=== PATIENT | female | born 1935 | race Caucasian/White ===

== ENCOUNTER 2021-08-14 21:55 | Observation (INO) | payer OTHER, SELFPAY ==
--- NOTE | ~2021-08-14 | XR_ITS ---
EXAMINATION: XR chest 1V portable INDICATION: Weakness, COVID 19 positive TECHNIQUE: Portable AP chest at 2213 hours COMPARISON: None available FINDINGS: The lungs are free of acute opacities. There is no pleural effusion or pneumothorax. The ca rdiomediastinal silhouette is normal. There appears to be eventration of the left hemidiaphragm. IMPRESSION: 1. No acute cardiopulmonary abnormality. Reviewed, dictated and finalized at location F. ENTARY SCHOOL DIRECTOR
[2021-08-14 21:51] VITALS: BP 153/71; PULSE 84; RESP 20; TEMP 36.8; O2SAT 96
--- NOTE | 2021-08-14 21:59 | ECG_ITS ---
Measurements Intervals [place] Rate: 84 P: 91 NM: 173 QRS: 8 QRSD: 97 T: 53 QT: 400 QTc: 474 Interpretive Statements SINUS RHYTHM CONSIDER INFERIOR INFARCT, AGE INDETERMINATE BORDERLINE ST-T WAVE ABNORMALITY- ANTEROLAT/HIGH LAT LEADS BASELINE ARTIFACT- I, II, III, AVR, AVL, AVF ABNORMAL ECG Electronically Signed On 08-15-2021 6:04:02 CARDIOLOGY CLINICAL CONSULTANT by Gokul Saavedra D.O.
[2021-08-14 22:23] VITALS: PULSE 89
[2021-08-14 22:28] LABS: Basophils Percent Auto 0.5 % (0.2-1.2); Eosinophils Absolute Auto 0.1 K/mm3 (0-0.3); Eosinophils Percent Auto 0.6 % (0-4.4); Hemoglobin 13.1 g/dL (12.0-15.0); Immature Granulocyte Absolute 0.04 K/mm3 (0.00-0.031); Immature Granulocyte Percent A 0.5 % (0-0.5); Lymphocytes Absolute Auto 1.83 K/mm3 (0.9-3.2); Lymphocytes Percent Auto 22.8 % (18.3-44.2); Mean Corpuscular HGB Conc 34.5 g/dl (32-36); Mean Corpuscular Hemoglobin 32.8 pg (26-34); Mean Platelet Volume 10.3 fl (7.4-10.4); Monocytes Absolute Auto 0.7 K/mm3 (0.1-0.6); Monocytes Percent Auto 8.9 % (2.6-8.5); Neutrophils Absolute Auto 5.3 K/mm3 (1.3-6.7); Neutrophils Percent Auto 66.7 % (45.5-73.1); Platelet Count Result 245 k/mm3 (150-375); Red Cell Distribution Width 12.7 % (11.5-14.5)
[2021-08-14 22:30] VITALS: PULSE 79; RESP 19; O2SAT 99
--- NOTE | 2021-08-14 22:30 | PC.NURSE ---
Pt's daughter, Ree Gorman, contact number: [phone]
[2021-08-14 22:32] VITALS: BP 144/68; PULSE 78; RESP 18; O2SAT 100
[2021-08-14 22:45] VITALS: PULSE 80; RESP 21
[2021-08-14] MEDS: SODIUM CHLORIDE 0.9% IV 500 ML 999 ML IV CONT (22:51)
[2021-08-14] MEDS: ONDANSETRON INJ 4 MG/2 ML VIAL IV PUSH (22:52)
[2021-08-14 23:13] LABS: Alanine Aminotransferase 13 U/L (4-35); Albumin Level 3.4 g/dL (3.5-5.1); Alkaline Phosphatase 54 U/L (38-126); Anion Gap 8 mmol/L (8-16); Aspartate Amino Transferase 22 U/L (14-36); Bilirubin,Total 1.3 mg/dL (0.2-1.3); Blood Urea Nitrogen 28 mg/dL (7-17); Carbon Dioxide 29 mmol/L (22-30); Chloride 94 mmol/L (98-107); Estimated CRCL calculation 39 ml/min; Estimated Glomerular Filt Rate 59; Glucose 126 mg/dL (65-110); Potassium 2.7 mmol/L (3.4-5.0); Sodium 131 mmol/L (137-145)
--- NOTE | 2021-08-14 23:25 | PC.NURSE ---
Assumed care of pt at this time, report taken from
--- NOTE | 2021-08-14 23:34 | PC.NURSE ---
Spoke with pts Grandson and caregiver, Ezio ([phone]), and he stated that pt has had black stools for last couple of days along with GI upset when eating. EDP notified.
[2021-08-14 23:56] VITALS: BP 146/74; PULSE 83; RESP 16; O2SAT 100
[2021-08-14] MEDS: POTASSIUM CHLORIDE INJ 40 MEQ in SODIUM CHLORIDE 0.9% IV 500 ML 130 MEQ IVPB (23:56)
--- NOTE | 2021-08-14 23:58 | ED.SYNCOPE ---
HPI - Syncope General Chief Complaint: Syncope Stated Complaint: syncope Time Seen by Provider: 08/14/21 22:03 Source: patient and EMS Mode of arrival: EMS Limitations: no limitations History of Present Illness HPI narrative: 85-year-old brought in from home with complaints of syncopal episode. Patient is a poor historian most of the history was obtained from EMS and family. Patient was recently diagnosed with COVID about 5 days ago . Family reports that she has been feeling weak not eating drinking and having black-colored stool. Patient however denies any chest pain or shortness of breath or cough. She states she had diarrhea earlier. Patient states that she felt faint before going to bed. MD complaint: felt faint Onset (ago): hour(s) (1) Witnessed: Yes - by Other (By family) Injuries sustained associated with event: none Current symptoms: none Related Data Home Medications Medication Instructions Recorded Confirmed atorvastatin 40 mg PO HS 08/14/21 clopidogrel 75 mg PO DAILY 08/14/21 famotidine 20 mg PO DAILY 08/14/21 pantoprazole 40 mg PO QAM 08/14/21 Allergies Allergy/AdvReac Type Severity Reaction Status Date / Time codeine Allergy Unknown Verified 08/14/21 22:02 denosumab Allergy Itching Verified 08/14/21 22:02 hydrocodone Allergy Nausea and Verified 08/14/21 22:02 Vomiting piperacillin Allergy Nausea and Verified 08/14/21 22:02 Vomiting Sulfa (Sulfonamide Allergy Nausea and Verified 08/14/21 22:02 Antibiotics) Vomiting tazobactam [From Zosyn] Allergy Nausea and Verified 08/14/21 22:02 Vomiting alendronate sodium AdvReac Nausea and Verified 08/14/21 22:02 Vomiting Review of Systems Review of Systems: All systems reviewed & are unremarkable except as noted in HPI and below Constitutional: Constitutional: Reports no additional constitutional complaints Eyes: Eyes: Reports no additional eye complaints ENT: Reports system reviewed and no additional complaints, except as documented Cardiovascular: Cardiovascular: Reports no additional cardiovascular complaints Respiratory: Respiratory: Reports no additional respiratory complaints Gastrointestinal: Gastrointestinal: Reports as per HPI Musculoskeletal: Musculoskeletal: Reports no additional musculoskeletal complaints Integumentary/Breasts: Skin/Breast: Reports system reviewed and no additional complaints, except as docu Neurologic: Reports system reviewed and no additional complaints, except as documented Exam Narrative: GENERAL: Well-appearing, well-nourished, and in no acute distress. HEAD: Normocephalic, atraumatic. EYES: PERRLA and EOMI.. NECK: Supple. CHEST: Clear to auscultation. No respiratory distress. HEART: Regular rate and rhythm. No murmur heard. Normal peripheral pulses. ABDOMEN: Soft, nontender, nondistended, normal active bowel sounds. Rectal guaiac Positive stool EXTREMITIES: Normal range of motion. No edema. SKIN: Warm, dry, no rash. NEURO: No focal deficits. Alert and oriented x3. PSYCH: Normal mood and affect. Course Course Emergency Course: Patient comfortably lying on bed in no discomfort. Informed her about her lab work. Discussed with Dr. Hunter agreed with admission Vital Signs Vital signs: Vital Signs Temperature 36.8 C 08/14/21 21:51 Pulse Rate 84 08/14/21 21:51 Respiratory Rate 20 08/14/21 21:51 Blood Pressure 153/71 H 08/14/21 21:51 Pulse Oximetry 96 08/14/21 21:51 Temperature 36.8 C 08/14/21 21:51 Pulse Rate 83 08/14/21 23:56 Respiratory Rate 16 08/14/21 23:56 Blood Pressure 146/74 H 08/14/21 23:56 Pulse Oximetry 100 08/14/21 23:56 MDM - Syncope Lab Data Result diagrams: 08/14/21 22:23 08/14/21 22:23 Labs: Lab Results 08/14/21 08/14/21 Range/Units 22:23 22:23 WBC 8.0 (4.5-10.0) K/mm3 RBC 4.00 L (4.2-5.4) M/mm3 Hgb 13.1 (12.0-15.0) g/dL Hct 38.0 (37.0-47.0) % MCV 95.0 (80-100
[2021-08-15] VITALS (15 sets, daily range): BP systolic 82–167; BP diastolic 43–93; PULSE 80–116; RESP 14–25; TEMP 36.1–36.7; O2SAT 92–100; BMI 30.5
[2021-08-15] MEDS: SODIUM CHLORIDE 0.9% IV 1,000 ML 100 ML IV CONT ×2 (01:32→12:52)
[2021-08-15] MEDS: PANTOPRAZOLE SODIUM IV 40 MG VIAL IV PUSH ×3 (01:39→20:41)
--- NOTE | 2021-08-15 02:31 | PC.NURSE ---
Pts daughter, Ree, would like update when pt has a bed.
[2021-08-15 02:52] LABS: Magnesium 2.5 mg/dL (1.6-2.3)
--- NOTE | 2021-08-15 03:14 | PC.NURSE ---
Pt states liquid potassium burned her mouth and throat. Per Dr Crowley, give 40 meq PO potassium chloride tablets.
[2021-08-15] MEDS: POTASSIUM CHLORIDE 20 MEQ TABLET 40 MEQ PO (03:38)
[2021-08-15] MEDS: ONDANSETRON INJ 4 MG/2 ML VIAL IV PUSH ×3 (03:43→12:53)
--- NOTE | 2021-08-15 04:35 | PM.IMHP ---
H&P: HPI History of Present Illness Date/Time: 08/15/21 04:35 Chief Complaint: Passed out Narrative: 85-year-old female with a past medical history hyperlipidemia, hypertension, tachycardia and GERD who presented to the ER via EMS after having a syncopal episode. The patient reports that she was diagnosed with COVID on August 08. Since that time she has been having sore throat and has not been able to eat or drink much fluid. She reports liquids cause burning in her throat. Is been accompanied by cough productive of thick clear sputum. She denies rhinorrhea but on exam she has significant postnasal drip. She has been having occasional nausea and decreased appetite. She reported that for about 4 days she did not have a bowel movement at all. She denies any diarrhea. She denies any abdominal pain. She has been having some dark stools for several days but has been taking Pepto-Bismol. ER physician performed a rectal exam which was guaiac positive. She does not think that she has been having any fevers. She was afebrile when she presented to the ER. She denies any chest pain. She has been having some mild shortness of breath. She denies any significant cough but was witnessed to have a few episodes of mild coughing at the time of my evaluation. She has had progressive weakness and dizziness with standing. She reported that today when she went to stand up from the kitchen table she felt as if she was going to pass out. She called out to her granddaughter and grandson live with her and the next thing she knows she woke up on the floor. Her family reported the patient was down for approximately 3 minute. She denies having any chest pain or palpitations. She does report that she has had a history of a fast heart rate in the past and was started on metoprolol for this. She has been on metoprolol for quite some time. She has chronic urinary incontinence and wears depends. She denies any dysuria or hematuria. Patient's hemoglobin is normal. She reports tenderness to palpation of the left lower extremity. She reports that this tenderness is chronic since the when she fell down some steps while carrying her grandson. She reports that the left lower extremity is always slightly more swollen than the right due to this injury. The patient is a fair to good historian. However, history process was difficult due to the patient's significant hearing loss. She reports that her hearing aid batteries are . Review of Systems Review of Systems: 12 systems were reviewed with pertinent positives and negatives per HPI. Except as documented in the HPI, all other systems were reviewed and are negative. [facility] Past Medical History Medical History (Updated 08/15/21 @ 07:23 by Ophelia Crowley DO) CVA (cerebral vascular accident) X3 Essential hypertension GERD (gastroesophageal reflux disease) Hyperlipidemia Tachycardia Surgical History Surgical History (Updated 08/15/21 @ 07:22 by Ophelia Crowley DO) History of bilateral cataract extraction History of total right knee replacement Family History Family History (Updated 08/15/21 @ 07:24 by Ophelia Crowley DO) Son , At age 43 Brain cancer Social History Social History (Updated 08/15/21 @ 07:29 by Ophelia Crowley DO) Social History: She lives at home with her grandson and granddaughter. She had a total of 4 children at live to . One of her sons due to brain cancer in his 40s. Her remaining 3 children are still living. She smoked 1 pack per day until her early 30s. She denies any alcohol use. She worked in various factories prior to retiring. Code status: The patient does not understand questions regarding code status due to her hearing loss. She states that her daughter Ree Alan is her healthcare power of florist. Alcohol intake: never Meds Home Medications and Allergies Home Medications Medication Instructions Recor
[2021-08-15 08:44] LABS: Hematocrit 38.1 % (37.0-47.0); Hemoglobin 12.8 g/dL (12.0-15.0); Mean Corpuscular HGB Conc 33.6 g/dl (32-36); Mean Corpuscular Hemoglobin 33.2 pg (26-34); Mean Corpuscular Volume 98.7 fl (80-100); Mean Platelet Volume 10.5 fl (7.4-10.4); Platelet Count Result 228 k/mm3 (150-375); Red Blood Count 3.86 M/mm3 (4.2-5.4); White Blood Count 6.3 K/mm3 (4.5-10.0)
[2021-08-15 08:55] LABS: Anion Gap 6 mmol/L (8-16); Blood Urea Nitrogen 25 mg/dL (7-17); Calcium 7.6 mg/dL (8.4-10.2); Carbon Dioxide 25 mmol/L (22-30); Chloride 103 mmol/L (98-107); Estimated CRCL calculation 44 ml/min; Estimated Glomerular Filt Rate > 60; Glucose 111 mg/dL (65-110); Potassium 3.9 mmol/L (3.4-5.0); Sodium 134 mmol/L (137-145)
--- NOTE | 2021-08-15 09:45 | PC.NURSE ---
GI in to see patient.
--- NOTE | 2021-08-15 09:54 | WPDGICN ---
Assessment and Plan Assessment and plan (1) Guaiac positive stools: Code(s): R19.5 - Other fecal abnormalities Status: Acute Assessment and Plan: she had taken some Pepto-Bismol. Nevertheless stool was Hemoccult positive when tested by the emergency room physician. This as well as her syncope suggest that she may have a gastrointestinal bleed not yet manifested by her hemoglobin level (2) Epigastric pain: Code(s): R10.13 - Epigastric pain Status: Acute Assessment and Plan: peptic ulcer disease is suspected. I will schedule her for EGD to be done this morning. She is NPO. I explained her the possible risks such as bleeding or perforation or the possible need for surgery due to complications (3) COVID-19: Code(s): U07.1 - COVID-19 Status: Acute Assessment and Plan: she was diagnosed positive on August 08. Her only symptoms are the sore throat and runny nose. Apparently she has had some coughing as well (4) Odynophagia: Code(s): R13.10 - Dysphagia, unspecified Status: Acute Assessment and Plan: as noted above, she blames it on a sore throat. She does however have acid reflux disease and has been taking pantoprazole for that for quite a while. She has never had an EGD GI Consult Note Consult date/time: 08/15/21 09:54 HPI: Farzaneh Ott is a 85 year old female Who presented to the emergency room because of a syncopal episode. She states that she did not have a bowel movement for 3 or 4 days and then yesterday had a couple of them that were black. She had however taking some Pepto-Bismol. Her stool was Hemoccult positive in the emergency room. She states that she has had epigastric pain for the last few weeks. She also has discomfort when she swallows. She was blaming that on a sore throat. She has had a runny nose and did test positive for COVID last week. . She denies fever. She denies coughing at home. The patient is on a beta-gen for fast heart rate. She denies other cardiac problems. She has not been taking anti-inflammatory medication. Denies gallbladder disease or liver disease. Her appetite has been good and she does not believe that she has lost any weight Review of Systems Review of Systems: All systems reviewed & are unremarkable except as noted in HPI and below PMFSH Past Medical History Medical History CVA (cerebral vascular accident) X3 Essential hypertension GERD (gastroesophageal reflux disease) Hyperlipidemia Tachycardia Surgical History Surgical History History of bilateral cataract extraction History of total right knee replacement Family History Family History Son , At age 43 Brain cancer Social History Social History Social History: She lives at home with her grandson and granddaughter. She had a total of 4 children at live to . One of her sons due to brain cancer in his 40s. Her remaining 3 children are still living. She smoked 1 pack per day until her early 30s. She denies any alcohol use. She worked in various factories prior to retiring. Code status: The patient does not understand questions regarding code status due to her hearing loss. She states that her daughter Ree Alan is her healthcare power of disability attorney. Alcohol intake: never Meds Home Medications and Allergies Home Medications Medication Instructions Recorded Confirmed Type atorvastatin 40 mg PO HS 08/14/21 History clopidogrel 75 mg PO DAILY 08/14/21 History famotidine 20 mg PO DAILY 08/14/21 History pantoprazole 40 mg PO QAM 08/14/21 History metoprolol succinate 25 mg PO 08/15/21 History Allergies Allergy/AdvReac Type Severity Reaction Status Date / Time
--- NOTE | 2021-08-15 10:17 | PC.NURSE ---
Patient departs for GI. To receive EGD.
--- NOTE | 2021-08-15 10:27 | WPDANESEPPF ---
Anes - Initial Pre Proc Eval Procedure: Operation Date: 08/15/21 10:00 Proposed Procedures p Esophagogastroduodenoscopy - Driss Chris MD Date/Time: 08/15/21 10:27 Surgeon: Ophelia Crowley DO Pre Op Diagnosis: Syncope, GI Bleed, Hypokalemia Patient Data Age: 85 Gender: F Height: 1.6 m Weight: 78.3 kg Last Vital Signs Temp 98.2 F 08/14/21 21:51 Pulse 116 H 08/15/21 07:19 Resp 16 08/15/21 07:19 BP 82/43 L 08/15/21 08:03 Pulse Ox 97 08/15/21 07:19 Allergies Allergy/AdvReac Type Severity Reaction Status Date / Time codeine Allergy Unknown Verified 08/14/21 22:02 denosumab Allergy Itching Verified 08/14/21 22:02 alendronate sodium AdvReac Nausea and Verified 08/14/21 22:02 Vomiting hydrocodone AdvReac Nausea and Verified 08/15/21 09:46 Vomiting piperacillin AdvReac Nausea and Verified 08/15/21 09:46 Vomiting Sulfa (Sulfonamide AdvReac Nausea and Verified 08/15/21 09:46 Antibiotics) Vomiting tazobactam [From Zosyn] AdvReac Nausea and Verified 08/15/21 09:46 Vomiting Home Medications Medication Instructions Recorded Confirmed Type atorvastatin 40 mg PO HS 08/14/21 History clopidogrel 75 mg PO DAILY 08/14/21 History famotidine 20 mg PO DAILY 08/14/21 History pantoprazole 40 mg PO QAM 08/14/21 History metoprolol succinate 25 mg PO 08/15/21 History Laboratory Tests 08/14/21 08/14/21 08/14/21 22:23 22:23 22:23 WBC 8.0 K/mm3 K/mm3 (4.5-10.0) RBC 4.00 M/mm3 L M/mm3 (4.2-5.4) Hgb 13.1 g/dL g/dL (12.0-15.0) Hct 38.0 % % (37.0-47.0) MCV 95.0 fl fl (80-100) MCH 32.8 pg pg (26-34) MCHC 34.5 g/dl g/dl (32-36) RDW 12.7 % % (11.5-14.5) Plt Count 245 k/mm3 k/mm3 (150-375) MPV 10.3 fl fl (7.4-10.4) Immature Gran % (Auto) 0.5 % % (0-0.5) Neut % (Auto) 66.7 % % (45.5-73.1) Lymph % (Auto) 22.8 % % (18.3-44.2) [place] % (Auto) 8.9 % H % (2.6-8.5) Eos % (Auto) 0.6 % % (0-4.4) Baso % (Auto) 0.5 % % (0.2-1.2) Lymph # (Auto) 1.83 K/mm3 K/mm3 (0.9-3.2) [place] # (Auto) 0.7 K/mm3 H K/mm3 (0.1-0.6) Eos # (Auto) 0.1 K/mm3 K/mm3 (0-0.3) Baso # (Auto) 0.0 K/mm3 K/mm3 (0.0-0.1) Abs Immat Gran (auto) 0.04 K/mm3 H K/mm3 (0.00-0.031) Absolute Neuts (auto) 5.3 K/mm3 K/mm3 (1.3-6.7) Absolute Nucleated RBC 0.0 K/mm3 K/mm3 (0.0-0.012) Nucleated RBC % 0.0 % % (0.0-0.2) Sodium 131 mmol/L L mmol/L (137-145) Potassium 2.7 mmol/L L* mmol/L (3.4-5.0) Chloride 94 mmol/L L mmol/L (98-107) Carbon Dioxide 29 mmol/L mmol/L (22-30) Anion Gap 8 mmol/L mmol/L (8-16) BUN 28 mg/dL H mg/dL (7-17) Creatinine 0.90 mg/dL mg/dL (0.7-1.0) Estim Creat Clear Calc 39 ml/min ml/min Estimated GFR 59 (59 - ) Glucose 126 mg/dL H mg/dL (65-110) Calcium 8.0 mg/dL L mg/dL (8.4-10.2) Magnesium 2.5 mg/dL H mg/dL (1.6-2.3) Total Bilirubin 1.3 mg/dL mg/dL (0.2-1.3) AST 22 U/L U/L (14-36) ALT 13 U/L U/L (4-35) Alkaline Phosphatase 54 U/L U/L (38-126) Total Protein 6.0 g/dL L g/dL (6.3-8.2) Albumin 3.4 g/dL L g/dL (3.5-5.1) 08/15/21 08/15/21 08:24 08:24 WBC 6.3 K/mm3 K/mm3 (4.5-10.0) RBC 3.86 M/mm3 L M/mm3 (4.2-5.4) Hgb 12.8 g/dL g/dL (12.0-15.0) Hct 38.1 % % (37.0-47.0) MCV 98.7 fl fl (80-100) MCH 33.2 pg pg (26-34) MCHC 33.6 g/dl g/dl (32-36) RDW 13.0 % % (11.5-14.5) Plt Count 228 k/mm3 k/mm3 (150-375) MPV 10.5 fl H fl (7.4-10.4) Immature Gran % (Auto) Neut % (Auto) Lymph % (Auto) [place] % (Auto)
[2021-08-15] MEDS: LACTATED RINGERS 1,000 ML 150 ML IV CONT (10:35)
--- NOTE | 2021-08-15 15:45 | PC.NURSE ---
Report received from Naeem, awaiting arrival of pt soon.
--- NOTE | 2021-08-15 16:06 | PC.NURSE ---
All medication confirmed with Ezio pt grandson and caregiver, PCP has changed from MD Palomino to MD Yepez per Ezio.
--- NOTE | 2021-08-15 16:07 | PC.NURSE ---
This patient, Farzaneh Ott, was admitted to [facility] Surg Room 325-01 at 1600. Patient/family oriented to hospital policies and general routines including ID bracelet, bed and alarms, visiting hours, pain management, procedures, bathroom and other care routines, personal items, smoking policy, room service/diet, and visiting hours. Information on how to activate the Rapid Response Team has been discussed. Patient/Family are encouraged to report perceived risks to care and to ask questions if they do not understand what they are told or what they should do.
--- NOTE | 2021-08-15 18:01 | PC.NURSE ---
Informed MD Mckeon pt c/o coughing and sore throat this shift, MD Mckeon putting in orders for pt.
--- NOTE | 2021-08-15 18:17 | PM.IMPN ---
Progress Note: A&P Assessment and Plan (1) Odynophagia: Code(s): R13.10 - Dysphagia, unspecified Status: Acute (2) Epigastric pain: Code(s): R10.13 - Epigastric pain Status: Acute (3) Guaiac positive stools: Code(s): R19.5 - Other fecal abnormalities Status: Acute (4) Syncope: Qualifiers: Syncope type: unspecified Qualified Code(s): R55 - Syncope and collapse Code(s): R55 - Syncope and collapse Status: Acute (5) COVID-19: Code(s): U07.1 - COVID-19 Status: Acute (6) Hypokalemia: Code(s): E87.6 - Hypokalemia Status: Acute (7) GI bleed: Qualifiers: GI bleed type/associated pathology: unspecified gastrointestinal hemorrhage type Qualified Code(s): K92.2 - Gastrointestinal hemorrhage, unspecified Code(s): K92.2 - Gastrointestinal hemorrhage, unspecified Status: Acute Assessment and Plan: Follow-up rounding note of 08/15/2021 Patient has been prescribed antitussive and analgesics for her throat She is cleared by GI anticipate discharge home tomorrow if remains clinically stable Subjective Date/time seen: 08/15/21 18:17 Patient had EGD no report of bleeding identified. She has been cleared by GI for discharge. Per RN Patient is complaining of sore throat and cough. Objective Data Vital Signs Vital Signs: Vital Signs - 24 hr 08/14/21 21:51 08/14/21 22:23 08/14/21 22:30 Temperature 98.2 F Pulse Rate 84 89 79 Respiratory Rate 20 19 Blood Pressure 153/71 H Pulse Oximetry 96 99 08/14/21 22:32 08/14/21 22:45 08/14/21 23:56 Temperature Pulse Rate 78 80 83 Respiratory Rate 18 21 H 16 Blood Pressure 144/68 H 146/74 H Pulse Oximetry 100 100 08/15/21 01:07 08/15/21 02:16 08/15/21 03:55 Temperature Pulse Rate 80 82 94 Respiratory Rate 16 25 H 20 Blood Pressure 129/69 157/91 H 154/76 H Pulse Oximetry 100 100 97 08/15/21 06:24 08/15/21 07:19 08/15/21 07:38 Temperature Pulse Rate 84 116 H Respiratory Rate 16 16 Blood Pressure 144/79 H 112/69 112/69 Pulse Oximetry 100 97 08/15/21 08:03 08/15/21 10:25 08/15/21 10:47 Temperature Pulse Rate 86 83 Respiratory Rate 18 18 Blood Pressure 82/43 L 155/70 H 151/72 H Pulse Oximetry 100 100 08/15/21 10:57 08/15/21 11:07 08/15/21 16:00 Temperature 97.5 F L Pulse Rate 82 87 82 Respiratory Rate 20 18 15 Blood Pressure 154/93 H 160/86 H 144/60 H Pulse Oximetry 100 100 99 Intake/Output Intake/Output: Intake & Output 08/12/21 08/13/21 08/14/21 08/15/21 23:59 23:59 23:59 23:59 Intake Total 2069 Balance 2069 Meds/Results Medications: Active Medications Generic Name Dose Route Start Last Admin Trade Name Freq PRN Reason Stop Dose Admin Codeine Sulfate 30 mg 08/15/21 18:11 Codeine Sulfate (*Crx) 30 Mg Tablet PO Q6H PRN cough Miscellaneous Information 0 each 08/15/21 00:01 Patient Has Allergy To Codeine Listed - Called Dr. Mckeon And She Said She Will Take Care XX 09/14/21 00:00 CLARIFY ARI Ondansetron HCl 4 mg 08/15/21 00:56 08/15/21 12:53 Ondansetron Inj 4 Mg/2 Ml Vial IV PUSH 4 mg Q4H PRN Administration Nausea Pantoprazole Sodium 40 mg 08/15/21 21:00 Pantoprazole Sodium Iv 40 Mg Vial IV PUSH Q12HR ARI Phenol 1 spray 08/15/21 18:13 Phenol/Sod Pheno [place] (*Bkc) MUCOUS MEM PRN PRN Sore Throat Radiology Results: ITS Impressions Chest X-Ray 08/14/21 22:34 IMPRESSION: 1. No acute cardiopulmonary abnormality. Labs Labs: Laboratory Results - last 24 hr 08/14/21 08/14/21 08/14/21 22:23 22:23 22:23 WBC 8.0 RBC 4.00 L Hgb 13.1 Hct 38.0 MCV 95.0 MCH 32.8 MCHC 34.5 RDW 12.7 Plt Count 245 MPV 10.3 Immature Gran % (Auto) 0.5 Neut % (Auto) 66.7 Lymph % (Auto) 22.8 [place] % (Auto) 8.9 H Eos % (Auto) 0.6 Baso % (Auto) 0.5 Lymph # (A
--- NOTE | 2021-08-15 18:48 | PC.NURSE ---
Clarified codeine allergy with pt, pt stated that she gets deathly sick ashelyn n&V.Md Mckeon informed.
[2021-08-16] VITALS: PULSE 96
[2021-08-16 04:00] VITALS: PULSE 75
[2021-08-16 05:22] VITALS: BP 159/97; PULSE 82; RESP 17; TEMP 36.6; O2SAT 92
[2021-08-16 08:00] VITALS: BP 122/65; PULSE 102; PULSE 93; RESP 14; TEMP 35.7; O2SAT 92; O2SAT 99
[2021-08-16 08:15] LABS: Basophils Percent Auto 0.5 % (0.2-1.2); Eosinophils Absolute Auto 0.1 K/mm3 (0-0.3); Eosinophils Percent Auto 1.3 % (0-4.4); Hematocrit 36.2 % (37.0-47.0); Hemoglobin 12.2 g/dL (12.0-15.0); Immature Granulocyte Absolute 0.05 K/mm3 (0.00-0.031); Immature Granulocyte Percent A 0.8 % (0-0.5); Lymphocytes Absolute Auto 1.46 K/mm3 (0.9-3.2); Mean Corpuscular HGB Conc 33.7 g/dl (32-36); Mean Corpuscular Hemoglobin 32.9 pg (26-34); Mean Corpuscular Volume 97.6 fl (80-100); Mean Platelet Volume 10.7 fl (7.4-10.4); Monocytes Absolute Auto 0.6 K/mm3 (0.1-0.6); Neutrophils Absolute Auto 4.2 K/mm3 (1.3-6.7); Neutrophils Percent Auto 65.4 % (45.5-73.1); Platelet Count Result 223 k/mm3 (150-375); Red Blood Count 3.71 M/mm3 (4.2-5.4); White Blood Count 6.3 K/mm3 (4.5-10.0)
--- NOTE | 2021-08-16 11:04 | WPDANESPN ---
Anes - Prog Note Post-Op Date/Time: 08/16/21 11:04 Cardiovascular status: normal Respiratory status: normal Airway patency: baseline Mental status: baseline Post-Op hydration status: normal Vital Signs: Last Vital Signs Temp 36.6 C 08/16/21 05:22 Pulse 82 08/16/21 05:22 Resp 17 08/16/21 05:22 BP 159/97 H 08/16/21 05:22 Pulse Ox 92 08/16/21 05:22 Pain Score (VAS): 0 I/O: Intake & Output 08/15/21 08/16/21 08/16/21 23:59 07:59 15:59 Intake Total 1280 50 Balance 1280 50 Laboratory Tests 08/16/21 07:14 08/15/21 08:24 08/16/21 07:14 WBC 6.3 RBC 3.71 L Hgb 12.2 Hct 36.2 L MCV 97.6 MCH 32.9 MCHC 33.7 RDW 13.0 Plt Count 223 MPV 10.7 H Immature Gran % (Auto) 0.8 H Neut % (Auto) 65.4 Lymph % (Auto) 23.0 [place] % (Auto) 9.0 H Eos % (Auto) 1.3 Baso % (Auto) 0.5 Lymph # (Auto) 1.46 [place] # (Auto) 0.6 Eos # (Auto) 0.1 Baso # (Auto) 0.0 Abs Immat Gran (auto) 0.05 H Absolute Neuts (auto) 4.2 Absolute Nucleated RBC 0.0 Nucleated RBC % 0.0 Post-procedural complaints: none Patient Feedback: Patient satisfied with anesthetic care.
[2021-08-16] MEDS: PANTOPRAZOLE SODIUM IV 40 MG VIAL IV PUSH (11:17)
[2021-08-16 12:00] VITALS: BP 140/76; PULSE 97; RESP 16; TEMP 35.8; O2SAT 92
[2021-08-16 12:05] LABS: Anion Gap 7 mmol/L (8-16); Blood Urea Nitrogen 21 mg/dL (7-17); Calcium 7.6 mg/dL (8.4-10.2); Carbon Dioxide 22 mmol/L (22-30); Chloride 104 mmol/L (98-107); Estimated CRCL calculation 57 ml/min; Estimated Glomerular Filt Rate > 60; Glucose 90 mg/dL (65-110); Potassium 3.5 mmol/L (3.4-5.0); Sodium 133 mmol/L (137-145)
--- NOTE | 2021-08-16 12:27 | WPDGIPROGNO ---
Progress Note: A&P Assessment and Plan (1) Guaiac positive stools: Code(s): R19.5 - Other fecal abnormalities Status: Acute Assessment and Plan: she had taken some Pepto-Bismol. Nevertheless stool was Hemoccult positive when tested by the emergency room physician. This as well as her syncope suggests that she had lost some blood (2) Epigastric pain: Code(s): R10.13 - Epigastric pain Status: Acute Assessment and Plan: I discussed the results with her. She did have some mild gastritis. A specimen for H pylori was negative. The primary problem is the severe esophagitis for which we will keep her on PPI. I plan on repeating EGD in 6 weeks (3) COVID-19: Code(s): U07.1 - COVID-19 Status: Acute Assessment and Plan: she was diagnosed positive on August 08. Her only symptoms are the sore throat and runny nose. Apparently she has had some coughing as well (4) Odynophagia: Code(s): R13.10 - Dysphagia, unspecified Status: Acute Assessment and Plan: as noted above, the EGD establish the fact that she has severe esophagitis as a reason for her painful swallowing. Subjective Date/time seen: 08/16/21 12:27 she is tolerating her full liquid diet. She states that it is not hurting as much when she swallows. We discussed results of her EGD. I explained her that she has severe esophagitis with linear ulcers. She had been on famotidine for quite a while. I told her she will need to be on a PPI and will discharge her on Protonix b.i.d.. Review of Systems Review of Systems: All systems reviewed & are unremarkable except as noted in HPI and below Exam Const: General: alert Orientation/consciousness: patient oriented x3 Resp: Auscultation: clear to auscultation bilaterally Cardio: Rhythm: regular rhythm GI: GI Palp: Yes Soft to palpation and No Tenderness to palpation present (GI) Auscultation: normal bowel sounds Neuro: General: patient oriented x3 Objective Data Vital Signs Vital Signs: Vital Signs - 24 hr 08/15/21 16:00 08/15/21 20:00 08/15/21 21:45 Temperature 36.4 C L 36.1 C L Pulse Rate 82 96 82 Respiratory Rate 15 18 Blood Pressure 144/60 H 127/49 L Pulse Oximetry 99 100 08/15/21 23:57 08/16/21 00:00 08/16/21 04:00 Temperature 36.6 C Pulse Rate 89 96 75 Respiratory Rate 20 Blood Pressure 155/92 H Pulse Oximetry 92 08/16/21 05:22 Temperature 36.6 C Pulse Rate 82 Respiratory Rate 17 Blood Pressure 159/97 H Pulse Oximetry 92 Intake/Output Intake/Output: Intake & Output 08/13/21 08/14/21 08/15/21 08/16/21 23:59 23:59 23:59 23:59 Intake Total 3350 50 Balance 3350 50 Meds/Results Medications: Active Medications Generic Name Dose Route Start Last Admin Trade Name Freq PRN Reason Stop Dose Admin Guaifenesin 200 mg 08/15/21 19:16 Guaifenesin 200 Mg/10 Ml Udc PO Q4H PRN Cough Ondansetron HCl 4 mg 08/15/21 00:56 08/15/21 12:53 Ondansetron Inj 4 Mg/2 Ml Vial IV PUSH 4 mg Q4H PRN Administration Nausea Pantoprazole Sodium 40 mg 08/15/21 21:00 08/16/21 11:17 Pantoprazole Sodium Iv 40 Mg Vial IV PUSH 40 mg Q12HR ARI Administration Phenol 1 spray 08/15/21 18:13 Phenol/Sod Pheno [place] (*Bkc) MUCOUS MEM PRN PRN Sore Throat Radiology Results: ITS Impressions Chest X-Ray 08/14/21 22:34 IMPRESSION: 1. No acute cardiopulmonary abnormality. Labs Labs: Laboratory Results - last 24 hr 08/16/21 08/16/21 07:12 07:14 WBC 6.3 RBC 3.71 L Hgb 12.2 Hct 36.2 L MCV 97.6 MCH 32.9 MCHC 33.7 RDW 13.0 Plt Count 223 MPV 10.7 H Immature Gran % (Auto) 0.8 H Neut % (Auto) 65.4 Lymph % (Auto) 23.0 [place] % (Auto) 9.0 H Eos % (Auto) 1.3 Baso % (Auto) 0.5 Lymph # (Auto) 1.46 [place] # (Auto) 0.6 Eos # (Auto) 0.1 Baso # (Auto) 0.0 Abs Immat Gran (auto) 0.05 H Absolute Neut
--- NOTE | 2021-08-16 12:39 | PM.DS ---
DS: Admitting Diagnosis Discharge Date 08/16/21 Admitting Diagnosis syncope DS: Discharge Diagnosis Discharge Diagnosis (1) Odynophagia: Code(s): R13.10 - Dysphagia, unspecified Status: Acute (2) Epigastric pain: Code(s): R10.13 - Epigastric pain Status: Acute (3) Guaiac positive stools: Code(s): R19.5 - Other fecal abnormalities Status: Acute (4) Syncope: Qualifiers: Syncope type: unspecified Qualified Code(s): R55 - Syncope and collapse Code(s): R55 - Syncope and collapse Status: Acute (5) COVID-19: Code(s): U07.1 - COVID-19 Status: Acute (6) Hypokalemia: Code(s): E87.6 - Hypokalemia Status: Acute (7) GI bleed: Qualifiers: GI bleed type/associated pathology: unspecified gastrointestinal hemorrhage type Qualified Code(s): K92.2 - Gastrointestinal hemorrhage, unspecified Code(s): K92.2 - Gastrointestinal hemorrhage, unspecified Status: Acute Assessment and Plan: Follow-up rounding note of 08/15/2021 Patient has been prescribed antitussive and analgesics for her throat She is cleared by GI anticipate discharge home tomorrow if remains clinically stable DS: Summary Hospital Course Reason for hospitalization: syncopal episode Hospital Course: 85-year-old female brought to the hospital after suffering syncopal episode while standing up from the kitchen chair. Patient additionally complained of having black stools and was found to be stool for guaiac positive. Gastroenterology was consulted and patient underwent EGD. Findings of severe esophagitis w indications for PPI given as well as repeat EGD in 6 weeks were given.No acute source of bleeding was identified. Her hemoglobin remained stable. Patient was noted to be dehydrated and her syncopal episode was believed to be associated with orthostasis. Her COVID infection remained without respiratory symptoms. She was treated with IV fluids. property assessment monitor was without significant events. Pt was subsequently discharged home in stable condition with indications to rest, stay well hydrated, quarantine, and return to ER if any alarm symptoms develop. Status at Discharge Overall status at discharge: patient is back to baseline Time Spent with Patient Time attestation: Total time spent providing and/or coordinating discharge services: Time spent: Greater than 30 minutes Exam Narrative: PHYSICAL EXAM: WEIGHT 78.3 kg BMI 30.6 General: Elderly, well-nourished, mildly ill-appearing HEENT: Mucous membranes are moist , NCAT Respiratory: Clear to auscultation bilaterally, no increased work of breathing, occasional cough Cardiovascular: Regular rate, regular rhythm Gastrointestinal: Soft, nontender, nondistended Musculoskeletal: No clubbing, no cyanosis, nonpitting edema bilateral lower extremities, tenderness to palpation of left anterior lyons Neurological: Alert and oriented x3, speech is clear, moderate to severe hearing loss Psychiatric: Appropriate mood and affect, pleasant and cooperative DS: Data Data Completed and Pending Pending studies at discharge: Pending at discharge 08/15/21 10:48 Surgical [PTH] Routine Labs on day of discharge: Labs from last 24 hours 08/16/21 08/16/21 07:14 07:12 WBC 6.3 RBC 3.71 L Hgb 12.2 Hct 36.2 L MCV 97.6 MCH 32.9 MCHC 33.7 RDW 13.0 Plt Count 223 MPV 10.7 H Immature Gran % (Auto) 0.8 H Neut % (Auto) 65.4 Lymph % (Auto) 23.0 [place] % (Auto) 9.0 H Eos % (Auto) 1.3 Baso % (Auto) 0.5 Lymph # (Auto) 1.46 [place] # (Auto) 0.6 Eos # (Auto) 0.1 Baso # (Auto) 0.0 Abs Immat Gran (auto) 0.05 H Absolute Neuts (auto) 4.2 Absolute Nucleated RBC 0.0 Nucleated RBC % 0.0 Sodium 133 L Potassium 3.5 Chloride 104 Carbon Dioxide 22 Anion Gap 7 L BUN 21 H Creatinine 0.60 L Estim Creat Clear Calc 57 Estimated GFR > 60 Glucose 90 Calci
== END 2021-08-16 14:50 | disposition home or self-care (01) ==
LOC: ANHED 08-15 00:07 → ANH3MEDSUR 08-15 09:51
PROVIDERS: Emergency Medicine; Internal Medicine Gastroenterology; Admitting Provider Internal Medicine; Emergency Provider Family Medicine; Visit Provider Hospitalist
PROC: 0DJ08ZZ Inspection of Upper Intestinal Tract, Via Natural or Artificial Opening Endoscopic (ICD-10-PCS; CPT 43235; principal; 2021-08-15 10:00)
DX: R55 Syncope and collapse (principal); K92.2 Gastrointestinal hemorrhage, unspecified; K22.10 Ulcer of esophagus without bleeding; K44.9 Diaphragmatic hernia without obstruction or gangrene; K21.00 Gastro-esophageal reflux disease with esophagitis, without bleeding; U07.1 COVID-19; R13.10 Dysphagia, unspecified; E87.6 Hypokalemia; R19.5 Other fecal abnormalities; I10 Essential (primary) hypertension; E78.5 Hyperlipidemia, unspecified; Z86.73 Personal history of transient ischemic attack (TIA), and cerebral infarction without residual deficits; Z87.891 Personal history of nicotine dependence; Z79.02 Long term (current) use of antithrombotics/antiplatelets; E66.9 Obesity, unspecified; Z68.30 Body mass index [BMI] 30.0-30.9, adult
CPT/HCPCS: 43239; 36415; 71045; 80048; 80053; 83735; 85025; 85027; 87081; 88305; 93005; 96361; 96365; 96366; 96375; 96376; 99285; A9270; C9113; G0378; J2405; J2704; J3480; J7030; J7040; J7120